=== PATIENT | male | born 1955 | race Caucasian/White ===

== ENCOUNTER 2025-07-14 21:02 | Observation (INO) | payer MEDICARE ==
[~2025-07-14] VITALS: Ht 172.7 cm; Wt 106.1 kg
--- NOTE | 2025-07-14 21:20 | ERN ---
ED Note History of Present Illness Stated Complaint: C/O PAIN TO RT UPPER LEG AFTER FALL patient comes. Because he has some right upper shoulder and right hip pain. But it has been able ambulate since then he has this fall was around noon. He denies any chest pain or shortness of breath or dizziness or weakness or syncope or presyncope before during after denies hitting hishead he is on warfarin Chief Complaint: Mechanical Fall Time Seen by MD: 21:07 Allergies: Coded Allergies: doxycycline (Unverified Allergy, Unknown, 07/14/25) Past Medical History Past Medical History: Arthritis, Hypertension Additional Past Medical Hx: ABD ANEURSYM; AORTIC REPAIR; BYPASS SX Surgical History: Other Surgical History Other: BACK SX; Review of System Dictation Constitutional: Negative for fever,chills, and weight loss Eyes: Negative for injury, pain,redness, and discharge ENT: Negative for injury,pain or swelling Cardiovascular: Negative for chest pain, palpitations, and edema Respiratory: Negative for shortness of breath, cough, and wheezing, Abdomen/GI: Negative for abdominal pain, nausea, vomiting, diarrhea, and constipation Back: Negative for injury and pain : Negative for injury, bleeding and discharge MS/Extremity: Negative for injury and deformity Skin: Negative for rash, and discoloration Neuro: Negative for headache, weakness, numbness, tingling, and seizure Psych: Negative for suicide ideation, homicidal ideation, and hallucinations Right hip pain right shoulder pain Initial Vital Sign VS Vital Signs Date Time Temp Pulse Resp B/P (MAP) Pulse Ox O2 Delivery O2 Flow Rate FiO2 07/14/25 21:09 97.9 51 20 130/78 98 Room Air 07/14/25 22:04 0 21 Physical Exam Dictation General: awake, alert, NAD Head/Face: Normocephalic, atraumatic Eyes: PERRL, EOMI, vision at baseline ENT: oral cavity clear, TMs clear, no signs of infection Neck: Trachea midline, supple, no nuchal rigidity Cardiovascular: RRR, normal S1/S2, No MRGs, no JVD Respiratory: CTAB, no respiratory distress, No rales or wheezes Abdomen: Soft, non-tender, non-distended, normal bowel sounds, no guarding or r ebound. Skin: Warm, dry, normal turgor, no rash MS/Extremity: Pulses equal, no cyanosis, neurovascular intact, FROM Neuro: COAx4, GCS 15, strength 5/5, CN 2-12 intact, normal cerebellar exam, normal gait, Psych: Normal behavior, mood, and affect normal Patient does have full range of motion strength sensation. About legs and both arms. NIH of 0. There on his lateral side of the hip. Right thigh. That has no swelling bruising he is neurovascular Results (Laboratory/Radiology) Laboratory/Radiology Laboratory Tests Test 07/14/25 22:01 07/14/25 22:16 White Blood Count 9.3 K/uL (4.8-10.8) Red Blood Count 4.31 MIL/uL (4.50-6.20) L Hemoglobin 13.6 g/dL (14.0-18.0) L Hematocrit 39.6 % (42-54) L Mean Corpuscular Volume 91.9 fL (79-99) Mean Corpuscular Hemoglobin 31.6 pg (27.0-33.0) Mean Corpuscular Hemoglobin Concent 34.3 g/dL (32.0-36.0) Red Cell Distribution Width 15.3 % (11.0-15.5) Platelet Count 174 K/uL (130-400) Mean Platelet Volume 11.3 fL (7.5-10.5) H Immature Granulocyte % (Auto) 0.2 % (0-1) Neutrophils (%) (Auto) 51.2 % (40.0-77.0) Lymphocytes (%) (Auto) 33.6 % (21.0-51.0) Monocytes (%) (Auto) 11.9 % (3.0-13.0) Eosinophils (%) (Auto) 2.6 % (0.0-8.0) Basophils (%) (Auto) 0.5 % (0.0-5.0) Neutrophils # (Auto) 4.7 K/uL (1.8-7.7) Lymphocytes # (Auto) 3.1 K/uL (1.0-4.8) Monocytes # (Auto) 1.1 K/uL (0.1-1.0) H Eosinophils # (Auto) 0.24 K/uL (0.00-0.70) Basophils # (Auto) 0.05 K/uL (0.00-0.20) Absolute Immature Granulocyte (auto 0.02 K/uL (0-1) Nucleated Red Blood Cells 0.0 % (0.0-0.19) Sodium Level 136 mmol/L (136-145) Potassium Level 4.3 mmol/L (3.5-5.1) Chloride Level 102 mmol/L (101-111) Carbon Dioxide Level 26 mmol/L (21-32) Blood Urea Nitrogen 17 mg/dL (7-18) Creatinine 1.8 mg/dL (0.5-1.3) H Glomerular Filtration Rate Calc 40 mL/min (>90) Random Glucose 112 mg/dL (70-105) H Total Calcium 9.2 mg/dL (8.5-10.1) Total Bilirubin 0.8 mg/dL (0.2-1.0) Aspartate Amino Transf (AST/SGOT) 30 U/L (10-37) Alanine Aminotransferase (ALT/SGPT) 33 U/L (12-78) Alkaline Phosphatase 68 U/L (50-136) Troponin I High Sensitivity 7 ng/L (4-75) Total Protein 6.5 g/dL (6.0-8.3) Albumin 3.8 g/dL (3.5-5.0) Whole Blood Glucose 101 MG/DL (70-110) ED Course ED Course Orders Procedure Category Date Status Time Ct Head/Brain W/O CT 07/14/25 Resulted Contrast 21:11 Cbc With Differential LAB 07/14/25 Complete 21:11 Comprehensive LAB 07/14/25 Complete Metabolic Panel 21:11 Troponin I High LAB 07/14/25 Complete Sensitivity 21:11 Chest 1vw RAD 07/14/25 Resulted 21:11 Hip Bilat 2vw RAD 07/14/25 Resulted 21:11 Morphine 4mg Syg PHA 07/14/25 Complete (Morphine 4mg Syg) 21:30 12 Lead Ekg Tracing- EKG 07/14/25 Complete Technical 21:11 Shoulder Comp 2+Vws Rt RAD 07/14/25 Resulted 21:20 Current Medications Medications (Trade) Dose Ordered Sig/Solomon Route PRN Reason Start Time Stop Time Status Last Admin Dose Admin Morphine Sulfate (morPHINE 4MG SYG) 4 mg ONCE ONCE IVP 07/14/25 21:30 07/14/25 21:31 DC 07/14/25 21:34 Vital Signs Date Time Temp Pulse Resp B/P (MAP) Pulse Ox O2 Delivery O2 Flow Rate FiO2 07/14/25 22:56 97.9 47 9 98/51 95 Room Air* 0 21 07/14/25 22:04 97.9 56 20 127/74 98 Room Air* 0 21 07/14/25 21:09 97.9 51 20 130/78 98 Room Air Medical Decision Making MDM Family's concern was that if there was a hematoma either in his hip or thigh. I said this is possible. But he has unlikely given the benign physical exam also to given neurovascular intact. It would not need any emergent or urgent suction or intervention even if there was a small subcutaneous or small intramuscular hematoma. I said we will do some pictures and labs and imaging as to make sure there was no fractures or bleeds the patient is not have any chest pain or shortness of breath no dizziness weakness presyncope. He is describing has a mechanical fall In the middle the patient's course. After the morphine administration. The patient did give very sleepy and tired. He also was very diaphoretic. Was immediately changed and placed in room nine. Did not neurological examination NIH of 0 there. He is mentating fine airways intact he is diaphoretic on his chest Repeat EKG is within normal limits no STEMI. He was initially hypotensive also. But given his mentation neurological status he is perfusing well. He was initially also Joon. And the 30s 40s. But then had resumed to being a 50 60s. Sign the patient out to the admitting provider also spoke to the family multiple times given his cardiovascular risk factors in his adverse reaction to the morp analilia in his bradycardia and hypotension. And diaphoresis. I would recommend admission in the hospital at least for observation. For cardiac observation and/or observation for medication side effect they are okay in agreement with this I have initially the patient did not want to stay but the family that has very adamant they does I told him my professional recommendation that he does state. They eventually acquiesced to this and said that they would stay. MDM: Differential diagnosis: Rationale: Tests considered and ordered secondary to shared decision making include: labs, ECG and radiology Previous outside records reviewed: Old ER visits. Risk of complication and/or morbidity or mortality of patient management: None Medications-Per medication reconciliation Need for hospitalization: Patient does meet criteria for hospitalization. Need for emergency major/minor surgery: No There are no social concerns with this patient. Prescription drug management Prescriptions will include symptomatic care Patient's prior external medical records from other ER visits were reviewed by me as indicated. Prior testing and results from previous visits were reviewed. Prior tests were taken into account with medical decision making and resource utilization, independent historian/historians were used to obtain complete medical history. I independently interpreted the test that were performed, results were reviewed by me and considered findings on radiology if ordered. Medical management and examination interpretation discussions were had by me with other qualified healthcare professionals as indicated for the patient's care. DX & DISP Disposition: Inpatient Departure Impression: Primary Impression: Hypotension Additional Impressions: Diaphoresis, Bradycardia, Fall, Medication side eff ect, Hip pain, Shoulder pain Condition: Stable MYCHAL LINDER MD Jul 14, 2025 21:20
--- NOTE | 2025-07-14 21:52 | EKG ---
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
[2025-07-14 22:08] LABS: IMMATURE GRANULOCYTE ABSOLUTE 0.02 K/uL (0-1); NUCLEATED RED BLOOD CELLS 0.0 % (0.0-0.19); PLATELET COUNT (AUTO) 174 K/uL (130-400); RED BLOOD CELL COUNT(AUTO) 4.31 MIL/uL (4.50-6.20); RED CELL DISTRIBUTION WIDTH 15.3 % (11.0-15.5); WHITE BLOOD COUNT (AUTO) 9.3 K/uL (4.8-10.8)
[2025-07-14 22:16] LABS: CREATININE 1.8 mg/dL (0.5-1.3); GLOMERULAR FILTR. RATE CALC 40.0 mL/min (>90); GLUCOSE,RANDOM 112.0 mg/dL (70-105); SODIUM SERUM 136.0 mmol/L (136-145); UREA NITROGEN, BLOOD 17.0 mg/dL (7-18)
[2025-07-14 22:25] LABS: ASPARTATE AMINOTRANSFERASE 30.0 U/L (10-37); TOTAL PROTEIN, SERUM 6.5 g/dL (6.0-8.3)
--- NOTE | 2025-07-14 22:34 | HMCIMG ---
EXAM: CT Head Without IV contrast. CLINICAL HISTORY: Fall. TECHNIQUE: Axial computed tomography images of the head/brain without intravenous contrast. COMPARISON: None provided. FINDINGS: BRAIN: Age-appropriate cerebral atrophy. Confluent periventricular chronic small vessel ischemic changes. No evidence of acute hemorrhage. No mass lesion. No CT evidence for acute territorial infarct. No midline shift or extra-axial collections. VENTRICLES: No hydrocephalus. ORBITS: The orbits are unremarkable. SINUSES AND MASTOIDS: The paranasal sinuses and mastoid air cells are clear. BONES: No fracture. SOFT TISSUES: Unremarkable. IMPRESSION: No acute intracranial abnormality. Age-appropriate cerebral atrophy and mild chronic small vessel ischemic changes. /[place]
--- NOTE | 2025-07-14 22:41 | HMCIMG ---
EXAM: CR right Shoulder, 2 views. CLINICAL HISTORY: Fall. COMPARISON: None provided. FINDINGS: BONES: No acute fracture or aggressively appearing osseous lesion. JOINTS: There is a shoulder replacement with intact metallic implants. No dislocation. SOFT TISSUES: The soft tissues are unremarkable. IMPRESSION: No acute fracture or dislocation. There is a shoulder replacement with intact metallic implants. /[place]
--- NOTE | 2025-07-14 22:46 | HMCIMG ---
EXAM: CR Chest, 1 View. CLINICAL HISTORY: Fall. COMPARISON: None provided. FINDINGS: LUNGS: There is no mass, infiltrate, or acute pulmonary abnormality. PLEURAL SPACES: No pleural effusion or pneumothorax. MEDIASTINUM: Cardiac size and mediastinal contours are within normal limits. BONES: No acute osseous abnormality. Bilateral shoulder replacement with metallic implants. Median sternotomy sutures. IMPRESSION: No acute cardiopulmonary pathology is evident. /[place]
--- NOTE | 2025-07-14 22:47 | HMCIMG ---
EXAM: CR both hips, 5 Views. CLINICAL HISTORY: Fall. COMPARISON: None provided. FINDINGS: BONES: No acute fracture or aggressive appearing osseous lesion. Diffuse osteopenia. JOINTS: Bilateral total hip replacement with intact metallic implants. No dislocation. SOFT TISSUES: The soft tissues are unremarkable. IMPRESSION: No acute osseous abnormality. Bilateral total hip replacement with intact metallic implants. /[place]
--- NOTE | 2025-07-14 23:06 | HP ---
History of Present Illness Reason for Visit: shoulder pain History of Present Illness Mr. Arriaza is a 70-year-old male that was seen and examined today on 07/14/2025. Patient came to the emergency department with a chief complaint of shoulder pain. Onset was at noon. Location is right shoulder. Duration is on and off. Character is described as aching. There was no alleviating factors. Symptoms are aggravated with movement. Patient reports an associated fall noon time preceding shoulder pain. Patient also reports that he drank a THC beverage earlier today. Patient also reports associated right hip pain. Today in the emergency department creatinine is 1.8, CBC is unremarkable, urinalysis unremarkable, chest x-ray is unremarkable, CT of the head is unremarkable, pelvis ] x-ray is unremarkable, shoulder x-ray is unremarkable, patient received 1 of morphine in the emergency department for analgesia which caused patient to become dizzy. For this reason emergency room physician recommended that patient be admitted with a diagnosis of adverse medication reaction to morphine Past Medical History ADDITIONAL PAST MEDICAL HISTORY: [Rheumatoid arthritis, hypertension, atrial fibrillation,] SOCIAL HISTORY: [Negative for smoking, alcohol use, drug use. Patient lives with his Skylar Blackwell, patient is typically independent of all his ADLs. Patient denies difficulty pain is bills.] SURGICAL HISTORY: [Abdominal aortic aneurysm repair, aortic valve repair, back surgery, bilateral knee surgery, bilateral hip surgery, bilateral shoulder surgery] Review of Systems General: No Fever, No Chills, No Night Sweats, No Fatigue, No Malaise, No Appetite, No Other HEENT: No Head Aches, No Visual Changes, No Eye Pain, No Ear Pain, No Dysphasia, No Sinus Congestion, No Post Nasal Drip, No Sore Throat, No Other Pulmonary: No Dyspnea, No Cough, No Pleuritic Chest Pain, No Other Cardiovascular: No: Chest Pain, Palpitations, Orthopnea, Paroxysmal Noc. Dyspnea, Edema, Lt Headedness, Other Gastrointestinal: No: Nausea, Vomiting, Abdominal Pain, Diarrhea, Constipation, Melena, Hematochezia, Other Genitourinary: No Dysuria, No Frequency, No Incontinence, No Hematuria, No Retention, No Other Musculoskeletal: shoulder pain, leg pain; No: other, neck pain, arm pain, back pain, hand pain, foot pain Skin: No Urticaria, No Rash, No Other Neurological: No: Weakness, Numbness, Incoordination, Change in speech, Confusion, Seizures, Other Allergies: Coded Allergies: doxycycline (Unverified Allergy, Unknown, 07/14/25) Scheduled Diclofenac Sodium (Voltaren), 3 TAB PO BID, (Reported) Diltiazem HCl (Diltiazem ER), 1 CAP PO DAILY, (Reported) Hydroxychloroquine Sulfate (Hydroxychloroquine Sulfate), 200 MG PO DAILY, (Reported) Metoprolol Tartrate (Metoprolol Tartrate), 1 TAB PO BID, (Reported) Pantoprazole Sodium (Pantoprazole Sodium), 1 TAB PO DAILY, (Reported) Pravastatin Sodium (Pravastatin Sodium), 80 MG PO PM, (Reported) Pregabalin (Lyrica), 1 CAP PO BID, (Reported) Exam Vital Signs Vital Signs Date Time Temp Pulse Resp B/P (MAP) Pulse Ox O2 Delivery O2 Flow Rate FiO2 07/14/25 22:56 97.9 47 9 98/51 95 Room Air* 0 21 General Appearance: Alert, Oriented X3, Cooperative HEENT: Atraumatic, EOMI Respiratory: Clear to auscultation, Normal air movement, NL respiratory effort Cardiovascular: Regular rate, Regular rhythm, Normal S1, Normal S2 Abdominal: Normal bowel sounds, Soft, No tenderness Extremities: No edema Skin: No significant lesion Neuro: Normal gait, Normal speech, Strength at 5/5 X4 ext Psych/Mental Status: Mental status NL, Mood NL, Thoughts/Content NL Assessment/Plan ASSESSMENT: [ Adverse reaction to morphine, POA HERSON versus CKD, POA Fall on 07/14/2025 Rheumatoid Arthritis Hypertension Atrial fibrillation PLAN: [ Admit patient to medical floor as inpatient status. Do not give patient any more morphine. As needed analgesia with Tylenol. Reviewed patient's diagnostic radiographic imaging which were all negative. Check urinalysis, follow up with the results. Lactated Ringer's at 75 mL/HR Baseline creatinine is unknown Calculate FENA Check urine sodium, creatinine, osmolality Avoid nephrotoxic agents when possible Renally dose all medications when possible Consider consulting Nephrology service if any worsening renal function or evidence of ATN. Monitor patient's labs. Weight patient daily. Monitor intake and output. Fall precautions Consider resuming home medications once they have been reconciled At time of admission home medications has been reconciled For now: Metoprolol 12.5 mg by mouth twice daily. Warfarin per patient stated home dose 5 mg Friday, , Friday, Friday, 7.5 mg, Friday GI prophylaxis, Protonix DVT prophylaxis, warfarin as stated above ADVANCED CARE PLANNING 1. Which of the following were discussed? Hospice Care - Yes Therapeutic options - yes Advance Directives - Yes - patient states he does not have any advance directives in place at this time, however his , Skylar can make decisions for him if he becomes unable. Other discussions - patient wishes to remain a full code at this time 2. Discussed with who? Patient 3. Voluntary nature of this service was explained to the patient? Yes 4. Amount of time spent - ___16 minutes____ 5. Reviewed by Physician? (if this service was performed by NPP) Yes This document was generated in part using voice recognition software, occasional wrong word or sound alike substitutions may have occurred due to the inherent limitations of voice recognition software. Read the chart carefully and recognize using context, where the substitutions have occurred. Although every effort was made to edit the content, senior mechanical technician and typing errors may occur ATTESTATION BY PHYSICIAN I have seen and examined the patient. I reviewed the documentation, medical decision making, and treatment plan as noted by the mid-level provider above. I agree with the findings and plan of care. ] MARITA HAUSER [facility] Jul 14, 2025 23:06
[2025-07-15] MEDS: LACTATED RINGERS 1000ML 1,000 ML IV SCH (00:44)
[2025-07-15] MEDS ORDERED: DICL25TA11 PO (00:57)
[2025-07-15] MEDS ORDERED: PANT20TA18 PO (01:01)
[2025-07-15] MEDS ORDERED: PREG200C PO (01:01)
[2025-07-15] MEDS ORDERED: METO25TA6 PO (01:01)
[2025-07-15] MEDS ORDERED: PRAV80TA75 PO (01:01)
[2025-07-15] MEDS ORDERED: HYDR200T75 PO (01:01)
[2025-07-15] MEDS ORDERED: DILT120C78 PO (01:01)
--- NOTE | 2025-07-15 01:01 | NUR ---
HOME MEDICATIONS RECONCILLED
[2025-07-15] MEDS ORDERED: PHARMACY COMMUNICATION MISC SCH (03:00)
[2025-07-15 06:00] VITALS: BP 149/86; PULSE 63; RESP 16; TEMP 97.1
[2025-07-15 06:29] LABS: IMMATURE GRANULOCYTE ABSOLUTE 0.01 K/uL (0-1); NUCLEATED RED BLOOD CELLS 0.0 % (0.0-0.19); PLATELET COUNT (AUTO) 145 K/uL (130-400); RED BLOOD CELL COUNT(AUTO) 4.09 MIL/uL (4.50-6.20); RED CELL DISTRIBUTION WIDTH 15.6 % (11.0-15.5); WHITE BLOOD COUNT (AUTO) 7.0 K/uL (4.8-10.8)
[2025-07-15 06:48] LABS: INR 2.11 (0.85-1.15)
[2025-07-15 06:49] LABS: CREATININE 1.5 mg/dL (0.5-1.3); GLOMERULAR FILTR. RATE CALC 49.0 mL/min (>90); GLUCOSE,RANDOM 92.0 mg/dL (70-105); PHOSPHORUS 3.1 mg/dL (2.5-4.9); SODIUM SERUM 138.0 mmol/L (136-145); UREA NITROGEN, BLOOD 18.0 mg/dL (7-18)
[2025-07-15 07:00] VITALS: O2SAT 98
[2025-07-15 07:07] LABS: APPEARANCE,URINE CLEAR (CLEAR); GLUCOSE, URINE (UA) NEGATIVE (NEGATIVE); LEUKOCYTE ESTERASE ,URINE NEGATIVE Leu/uL (NEGATIVE); NITRATE,URINE NEGATIVE (NEGATIVE); OCCULT BLOOD,URINE NEGATIVE (NEGATIVE)
[2025-07-15 07:08] LABS: ADD UA MICROSCOPIC NO
[2025-07-15 07:10] LABS: CREATININE,URINE RANDOM 52.46 mg/dL (30-135)
[2025-07-15] MEDS ORDERED: PREG200C29 PO ×2 (10:04→10:11)
[2025-07-15] MEDS ORDERED: WARF-57 PO (10:04)
[2025-07-15] MEDS ORDERED: DILT180C89 PO (10:08)
--- NOTE | 2025-07-15 11:42 | NUR ---
DCP:HOME Pt and are from [place] however are here visiting their daughter. they are scheduled to be here until August 10. Pt typically uses a cane to ambulate. states that pt is able to complete ADLs independently. PCP is Dr. Martinez [phone] and they use [facility] for any [facility] needs. At [place] pt will want to go back to his daughter's home and family states that they can assist with transportation. Addendum: 07/15/25 at 1144 by BELLE DOYLE SS Amended: Links added.
[2025-07-15 12:00] VITALS: BP 132/71; PULSE 71; RESP 18; TEMP 97.8
[2025-07-15 13:06] LABS: CREATINE KINASE, TOTAL 497.0 U/L (21-232)
--- NOTE | 2025-07-15 14:36 | HMCIMG ---
Exam: CT Right femur without IV contrast. History: Fall. possible hematoma right thigh. Technique Multi-planar sequences were obtained of the right thigh/femur without IV contrast. Findings: Right hip and knee arthroplasty hardware casts steak artifact which limits the exam. No gross acute fracture or dislocation. No hematoma deteced. Mild right lateral soft tissue subcutaneous fat edema. Small fat containing right inguinal hernia. Scattered mild arteral calcific atherosclerosis. Small kne joint effusion. IMPRESSION: 1. No acute osseous injury. 2. Mild right lateral soft tissue subcutaneous fat edema. 3. Small right inguinal hernia. 4. Small knee joint effusion. /[place]
[2025-07-15 15:30] VITALS: BP 160/82; PULSE 63; RESP 18; TEMP 98
--- NOTE | 2025-07-15 15:30 | NUR ---
RECEIVED PT INTO ROOM 304. PT IS ALERT AND ORIENTED WITH FAMILY AT BEDSIDE. NO SIGNS OF DISCOMFORT OR DISTRESS.
[2025-07-15] MEDS: WARFARIN SODIUM 7.5 MG TAB PO SCH (15:40)
[2025-07-15] MEDS ORDERED: DICLOFENAC SODIUM PO SCH (21:00)
--- NOTE | 2025-07-15 21:24 | DS ---
Discharge Summary Hospital Course Summary: Mr. Arriaza is a 70-year-old male with the past medical history of Hypertension, Rheumatoid arthritis, Aortic valve surgery, Atrial fibrillation on warfarin, b/l hip replacement, spine surgery presented with a chief complaint of shoulder pain post fall. He also complained of right thigh pain. He described the fall as a mechanical fall and didnot complain of dizziness or loss of consciousness. In the emergency department, creatinine is 1.8, CBC is unremarkable, urinalysis unremarkable, chest x-ray is unremarkable, CT of the head is unremarkable, pelvis x-ray is unremarkable, shoulder x-ray is unremarkable, patient received 1 mg of morphine in the emergency department for analgesia which caused patient to become dizzy with BP 96/51, Pulse 47, RR 9. For this reason emergency room physician recommended that patient be admitted with a diagnosis of adverse medication reaction to morphine and also to evaluate the patient complains. He was continued on LR. His home medications were resumed which also included Diltiazem and Metoprolol. While presentation his pulse was 51 which may be because of both the metoprolol and diltiazem which may has contributed to fall. He had pain and slightly tense thigh which was a concern for hematoma as he was on warfarin. We got the ct of the lower extremity which was negative for hemat glory. CK was 497 suggestive of mild rhabdomyolysis. Patient was requesting the early discharge. We advised the patient for cardiology consult for the adjustment of the medications especially metoprolol and diltiazem with bradycardia, but the patient denied as he wants to go and get evaluated to his own cardiology outpatient. He was discharged today with f/u to PCP in 3 days. His metoprolol was held until he see his cardiology in 2 weeks. He was advised to take plenty of water at least 2 litre s day. Procedure(s): PATIENT: ANNE RARIAZA MR#: [id number] : 1955 SEX: M AGE: 70 LOCATION: [facility] ORDER 15 STATUS: REG [facility] REPORT#: [id number] SERVICE 10 REASON: fall ORDERING PHYSICIAN: MYCHAL LINDER MD PROCEDURE: CXR1VW - CHEST 1VW EXAM: CR Chest, 1 View. CLINICAL HISTORY: Fall. COMPARISON: None provided. FINDINGS: LUNGS: There is no mass, infiltrate, or acute pulmonary abnormality. PLEURAL SPACES: No pleural effusion or pneumothorax. MEDIASTINUM: Cardiac size and mediastinal contours are within normal limits. BONES: No acute osseous abnormality. Bilateral shoulder replacement with metallic implants. Median sternotomy sutures. IMPRESSION: No acute cardiopulmonary pathology is evident. /[place] DICTATED BY: DOM FREY Jr., MD DATE: 07/14/252344 ELECTRONICALLY SIGNED BY: DOM FREY Jr., MD DATE: 07/14/252344 PATIENT: ANNE ARRIAZA MR#: [id number] : 1955 SEX: M AGE: 70 LOCATION: [facility] ORDER 15 STATUS: REG REPORT#: [id number] SERVICE 10 REASON: fall ORDERING PHYSICIAN: MYCHAL LINDER MD PROCEDURE: HEAD WO - CT HEAD/BRAIN W/O CONTRAST EXAM: CT Head Without IV contrast. CLINICAL HISTORY: Fall. TECHNIQUE: Axial computed tomography images of the head/brain without intravenous contrast. COMPARISON: None provided. FINDINGS: BRAIN: Age-appropriate cerebral atrophy. Confluent periventricular chronic small vessel ischemic changes. No evidence of acute hemorrhage. No mass lesion. No CT evidence for acute territorial infarct. No midline shift or extra-axial collections. VENTRICLES: No hydrocephalus. ORBITS: The orbits are unremarkable. SINUSES AND MASTOIDS: The paranasal sinuses and mastoid air cells are clear. BONES: No fracture. SOFT TISSUES: Unremarkable. IMPRESSION: No acute intracranial abnormality. Age-appropriate cerebral atrophy and mild chronic small vessel ischemic changes. /[place] DICTATED BY: DOM FREY Jr., MD DATE: 07/14/252332 ELECTRONICALLY SIGNED BY: DOM FREY Jr., MD DATE: 07/14/252332 PATIENT: ANNE ARRIAZA MR#: [id number] : 1955 SEX: M AGE: 70 LOCATION: [facility] ORDER 15 STATUS: REG [facility] REPORT#: [id number] SERVICE 10 REASON: fall ORDERING PHYSICIAN: MYCHAL LINDER MD PROCEDURE: HIPS B 2V - HIP BILAT 2VW EXAM: CR both hips, 5 Views. CLINICAL HISTORY: Fall. COMPARISON: None provided. FINDINGS: BONES: No acute fracture or aggressive appearing osseous lesion. Diffuse osteopenia. JOINTS: Bilateral total hip replacement with intact metallic implants. No dislocation. SOFT TISSUES: The soft tissues are unremarkable. IMPRESSION: No acute osseous abnormality. Bilateral total hip replacement with intact metallic implants. /[place] DICTATED BY: DOM FREY Jr., MD DATE: 07/14/252345 ELECTRONICALLY SIGNED BY: DOM FREY Jr., MD DATE: 07/14/252345 PATIENT: ANNE ARRIAZA MR#: [id number] : 1955 SEX: M AGE: 70 LOCATION: ED ORDER 15 STATUS: REG [facility] REPORT#: [id number] SERVICE 10 REASON: fall ORDERING PHYSICIAN: MYCHAL LINDER MD PROCEDURE: HIPS B 2V - HIP BILAT 2VW EXAM: CR both hips, 5 Views. CLINICAL HISTORY: Fall. COMPARISON: None provided. FINDINGS: BONES: No acute fracture or aggressive appearing osseous lesion. Diffuse osteopenia. JOINTS: Bilateral total hip replacement with intact metallic implants. No dislocation. SOFT TISSUES: The soft tissues are unremarkable. IMPRESSION: No acute osseous abnormality. Bilateral total hip replacement with intact metallic implants. /[place] DICTATED BY: DOM FREY Jr., MD DATE: 07/14/252345 ELECTRONICALLY SIGNED BY: DOM FREY Jr., MD DATE: 07/14/252345 PATIENT: ANNE ARRIAZA MR#: [id number] : 1955 SEX: M AGE: 70 LOCATION: [facility] ORDER 27 STATUS: ADM IN REPORT#: [id number] SERVICE 26 REASON: fall -possible hematoma right thigh ORDERING PHYSICIAN: CATHY COWAN MD PROCEDURE: LOW EXT WO - CT LOW EXT W/O CONTRAST Exam: CT Right femur without IV contrast. History: Fall. possible hematoma right thigh. Technique Multi-planar sequences were obtained of the right thigh/femur without IV contrast. Findings: Right hip and knee arthroplasty hardware casts steak artifact which limits the exam. No gross acute fracture or dislocation. No hematoma deteced. Mild right lateral soft tissue subcutaneous fat edema. Small fat containing right inguinal hernia. Scattered mild arteral calcific atherosclerosis. Small kne joint effusion. IMPRESSION: 1. No acute osseous injury. 2. Mild right lateral soft tissue subcutaneous fat edema. 3. Small right inguinal hernia. 4. Small knee joint effusion. /[place] DICTATED BY: BELLE GARG MD DATE: 07/15/251535 ELECTRONICALLY SIGNED BY: BELLE GARG MD DATE: 07/15/251535 Assessment/Plan: ASSESSMENT: Fall on 07/14/2025 POA Acute Rhabdomyolysis POA Adverse reaction to morphine, POA HERSON on CKD, POA Rheumatoid Arthritis POA Hypertension POA Atrial fibrillation POA Discharge Instructions: You were admitted at [facility] for evaluation and management of right shoulder and right thigh pain post fall. -With the concern of low heart rate, we recommend you to hold metoprolol and continue rest of your home medications until you visit cardiology in 2 weeks. -Your creatinine was mildly elevated suggestive of rhabdomyolysis. Please have at least 2 L of water intake. Also monitor the worsening of pain in the thigh, if that is the case you have to come to emergency department. -follow up to your PCP in 2 days. Home Medications: Reported Medications Pregabalin (Pregabalin) 200 Mg Capsule, 1 CAP PO BID MDD 2 Capsule(s) for 30 Days, #60 CAP 0 Refills 07/15/25 Diltiazem HCl (Diltiazem 24Hr ER) 180 Mg Cap.er.24h, 1 CAP PO DAILY for 30 Days, #30 CAP 0 Refills 07/15/25 Pravastatin Sodium (Pravastatin Sodium) 80 Mg Tablet, 80 MG PO PM, TAB 07/15/25 Pantoprazole Sodium (Pantoprazole Sodium) 20 Mg Tablet.dr, 1 TAB PO DAILY for 30 Days, #30 TAB 0 Refills 07/15/25 Hydroxychloroquine Sulfate (Hydroxychloroquine Sulfate) 200 Mg Tablet, 200 MG PO DAILY, TAB 07/15/25 Diclofenac Sodium (Voltaren) 25 Mg Tab, 3 TAB PO BID for 30 Days, #60 TAB 0 Refills 07/15/25 Discontinued Reported Medications Pregabalin (Pregabalin) 200 Mg Capsule, 1 CAP PO BID 07/15/25 Warfarin Sodium (Warfarin Sodium) 5 Mg Tablet, 1 TAB PO DAILY 07/15/25 Pregabalin (Lyrica) 200 Mg Capsule, 1 CAP PO BID for 30 Days, #60 CAP 0 Refills 07/15/25 Metoprolol Tartrate (Metoprolol Tartrate) 25 Mg Tablet, 1 TAB PO BID for 30 Days, #60 TAB 0 Refills 07/15/25 Diltiazem HCl (Diltiazem ER) 120 Mg Capsule.er, 1 CAP PO DAILY for 30 Days, #30 CAP 0 Refills 07/15/25 Continued Medications: Diclofenac Sodium (Voltaren) 25 Mg Tab 3 TAB PO BID for 30 Days, #60 TAB 0 Refills Diltiazem HCl (Diltiazem 24Hr ER) 180 Mg Cap.er.24h 1 CAP PO DAILY for 30 Days, #30 CAP 0 Refills Hydroxychloroquine Sulfate (Hydroxychloroquine Sulfate) 200 Mg Tablet 200 MG PO DAILY, TAB Pantoprazole Sodium (Pantoprazole Sodium) 20 Mg Tablet.dr 1 TAB PO DAILY for 30 Days, #30 TAB 0 Refills Pravastatin Sodium (Pravastatin Sodium) 80 Mg Tablet 80 MG PO PM, TAB Pregabalin (Pregabalin) 200 Mg Capsule 1 CAP PO BID MDD 2 Capsule(s) for 30 Days, #60 CAP 0 Refills Time spent arranging discharge: 1-30 minutes ATTESTATION BY PHYSICIAN I have seen and examined the patient. I reviewed the documentation, medical decision making, and treatment plan as noted by the mid-level provider above. I agree with the findings and plan of care. JOSE DUGAN MD, SUNIL MD Jul 15, 2025 21:24
--- NOTE | 2025-07-16 11:21 | HMCIMG ---
FEMUR 2VW RIGHT REASON: PAIN TECHNIQUE: 4 views were obtained. FINDINGS: There is no evidence of fracture or dislocation. There is a right hip arthroplasty which appears in anatomic position. There is a right knee arthroplasty which appears to be anatomical position There is no joint effusion. The soft tissues appear unremarkable. There is no evidence of a radiopaque foreign body. There is early atherosclerotic changes of the right superficial femoral artery and popliteal artery with calcified plaque. IMPRESSION: No acute findings. Status post arthroplasty of the right knee and right hip which appears to be anatomical position.
[2025-07-16] MEDS ORDERED: WARFARIN SODIUM 5 MG TAB PO SCH (16:00)
== END 2025-07-15 17:45 | disposition home or self-care (01) ==
LOC: EDH 21:02 → UNDOADMOB 23:06 → EDHIP 23:06 → INTOOBSV 23:06 → EDHIP 07-15 10:00 → 3AH 07-15 15:30
PROVIDERS: ADMIT Internal Medicine; ATTEND Internal Medicine
DX: M62.82 Rhabdomyolysis (principal); M06.9 Rheumatoid arthritis, unspecified; I12.9 Hypertensive chronic kidney disease with stage 1 through stage 4 chronic kidney disease, or unspecified chronic kidney disease; N18.9 Chronic kidney disease, unspecified; N17.9 Acute kidney failure, unspecified; T40.2X5A Adverse effect of other opioids, initial encounter; M25.551 Pain in right hip; M79.651 Pain in right thigh; R00.1 Bradycardia, unspecified; R42 Dizziness and giddiness; I95.9 Hypotension, unspecified; M25.511 Pain in right shoulder; Z79.01 Long term (current) use of anticoagulants; Z79.899 Other long term (current) drug therapy; Z98.890 Other specified postprocedural states; Y92.89 Other specified places as the place of occurrence of the external cause
CPT/HCPCS: 99285; 84484 ×2; 80053; 85025 ×2; 82948 ×3; 36415 ×2; 71045; 73521; 73030; 70450; 96374; 93005; 84443; 82550; 82570; 83735; 84100; 80048; 84300; 85610; 85730; 83935; 81003; 73552; 73700; J2270; G0378 ×8